=== PATIENT | female | born 1965 | race African-American/Black ===

== ENCOUNTER 2016-10-15 14:23 | Observation (INO) | payer MEDICARE, OTHER ==
--- NOTE | ~2016-10-15 | OP ---
Record Of Operation [facility] [address] [place]. [address] NAME: ESTRELLA QUINONEZ : 69 STATUS : DIS Nahid PAT#: [id number] AGE: 51 ADM/REG DATE : 10/15/16 MR#: [id number] REPORT SERV DATE: 10/18/16 DICTATED BY: SALVADOR BIGGS DATE: 10/18/16 REPORT STATUS : Draft TRANSCRIBED BY: MODL DATE: 10/18/16 DATE OF PROCEDURE: 10/16/2016 ATTENDING: Salvador Biggs MD. STUDENT SUCCESS COACH: Chadd. PREPROCEDURE DIAGNOSIS: Occluded AV graft. POSTPROCEDURE DIAGNOSES: 1. Occluded AV graft. 2. Stenosis with the venous outflow stent. ANESTHESIA: MAC and local. SPECIMENS: Clot. BLOOD LOSS: 50 mL. COMPLICATIONS: Perforation of the graft on the venous side. INDICATIONS: Estrella Quinonez is 51 years old, recently was found to have occluded AV graft. She was offered repair. Risks, benefits, and alternatives were discussed. She understood and wished to proceed. OPERATIVE COURSE: The patient was brought to the operating room and placed in supine position on the operating room table. The patient had MAC anesthetic that was converted to general. Right arm was prepped and draped in a sterile fashion. A time-out was performed. Identified the correct patient, procedure, site. We began by infiltrating the skin and subcutaneous tissue at the apex of the loop. We dissected down the subcutaneous tissue and fat to the graft which was encircled. We gave IV heparin and allowed adequate time for circulation. We made a transverse graftotomy, we immediately met with clot. We used a 4 Sunni to thrombectomize the arterial end and got brisk inflow after 3 passes. We clamped this end with a profunda clamp. We then passed the thrombectomy catheter distally in the venous circuit and we were able to pull out a large amount of clot. There was a lot of resistance from the venous anastomosis. We popped 1 balloon and had to try another one. We then tried to insert a sheath and met resistance. We then tried to insert the sheath over the wire and met further resistance. We performed a graftogram which demonstrated perforation of the graft. We were able to guide a Glidewire across the perforation into the distal graft. A graftogram here demonstrated severe stenosis within the outflow stent with patency of the central circulation. We got wire access across the occlusion and angioplastied the stent with a 6 cutting balloon and a 6 standard balloon. This gave a resolution of the stenosis. We then brought up a 7 x 150 Viabahn stent and covered the graft perforation. After this, the graftogram looked excellent with no residual stenosis. We checked the inflow again and it was brisk. We irrigated the graft. We then sutured the graft back together using interrupted 5-0 Prolene suture. Clamps were released and flow was Record Of Operation [address] [address] NAME: ESTRELLA QUINONEZ : 69 STATUS : DIS Nahid PAT#: [id number] AGE: 51 ADM/REG DATE : 10/15/16 MR#: [id number] REPORT SERV DATE: 10/18/16 DICTATED BY: SALVADOR BIGGS DATE: 10/18/16 REPORT STATUS : Draft TRANSCRIBED BY: WALT DATE: 10/18/16 re-established in the graft. There was an excellent thrill. The wound was irrigated with saline. We closed this incision with subdermal Vicryl and subcuticular Monocryl and Dermabond. The patient tolerated the procedure well. She was awakened and transferred to the recovery in stable condition. SHELLEY/WALT Salvador Biggs MD / [id number] CC: MD ESTRELLA Vega
[~2016-10-15 14:23] MED LIST: LORTAB 5 PO; PR25 PO; PRIN10 PO; PROVERA 10 MG T10 MG PO; T3 PO; ZIAC10 PO
[2016-10-15 15:02] LABS: BASOPHILS 0.1 %; BASOPHILS ABSOLUTE 0.02 10/3/uL (0.0-0.16); EOSINOPHILS 0.8 %; EOSINOPHILS ABSOLUTE 0.11 10/3/uL (0.0-0.53); IMMATURE GRANULOCYTES 0.2 %; IMMATURE GRANULOCYTES ABSOLUTE 0.03 10/3/uL (0.0-0.11); LYMPHOCYTES 19.9 %; LYMPHOCYTES ABSOLUTE 2.76 10/3/uL (0.67-4.30); MEAN PLATELET VOLUME 9.8 fL (9.2-13.0); MONOCYTES 4.9 %; MONOCYTES ABSOLUTE 0.68 10/3/uL (0.21-1.20); NEUTROPHILS 74.1 %; RBC DISTRIBUTION WIDTH 14.9 % (12.0-16.0); RED CELL COUNT 3.44 10/6/uL (4.0-5.6); WHITE BLOOD CELLS 13.9 10/3/uL (4.5-10.5)
[2016-10-15 15:05] LABS: HEMATOCRIT 34.3 % (36.0-48.0); HEMOGLOBIN 11.6 g/dL (12.0-16.0); MANUAL DIFF NO %; MEAN CORPUS HGB CONC 33.8 g/dL (32.0-36.0); MEAN CORPUSCULAR HEMOGLOB 33.7 pg (26.0-34.0); MEAN CORPUSCULAR VOLUME 99.7 fL (80-100); PLATELET COUNT 273 10/3/uL (150-400)
[2016-10-15] MEDS ORDERED: COREG3 PO (15:12)
[2016-10-15] MEDS ORDERED: SENSIPAR60 MG PO (15:14)
[2016-10-15] MEDS ORDERED: DIALYVITE PO (15:14)
[2016-10-15] MEDS ORDERED: ASAB PO (15:15)
[2016-10-15] MEDS ORDERED: SEVE800T PO (15:15)
[2016-10-15 16:15] LABS: CALCIUM, SERUM 8.4 MG/DL (8.5-10.4); CHLORIDE, SERUM 98 MMOL/L (96-112); CO2 (CARBON DIOXIDE) 21 MMOL/L (24-34); SODIUM, SERUM 137 MMOL/L (135-148)
[2016-10-15 16:17] LABS: BUN (BLOOD UREA NITROGEN) 80 MG/DL (6-23); POTASSIUM, SERUM 7.1 MMOL/L (3.5-5.3)
[2016-10-15 16:18] LABS: GFR AFRICAN AMERICAN 3 ML/MIN (>=60); GFR NON AFRICAN AMERICAN 3 ML/MIN (>=60); GLUCOSE, SERUM 74 MG/DL (60-99)
[2016-10-16 08:33] LABS: BASOPHILS 0.1 %; BASOPHILS ABSOLUTE 0.01 10/3/uL (0.0-0.16); IMMATURE GRANULOCYTES 0.3 %; IMMATURE GRANULOCYTES ABSOLUTE 0.03 10/3/uL (0.0-0.11); LYMPHOCYTES 19.7 %; LYMPHOCYTES ABSOLUTE 1.99 10/3/uL (0.67-4.30); MEAN CORPUS HGB CONC 33.7 g/dL (32.0-36.0); MEAN CORPUSCULAR HEMOGLOB 33.6 pg (26.0-34.0); MEAN CORPUSCULAR VOLUME 99.6 fL (80-100); MEAN PLATELET VOLUME 8.9 fL (9.2-13.0); MONOCYTES 6.5 %; MONOCYTES ABSOLUTE 0.66 10/3/uL (0.21-1.20); NEUTROPHILS 72.4 %; PLATELET COUNT 220 10/3/uL (150-400); RBC DISTRIBUTION WIDTH 14.8 % (12.0-16.0); WHITE BLOOD CELLS 10.1 10/3/uL (4.5-10.5)
[2016-10-16 08:37] LABS: HEMATOCRIT 26.7 % (36.0-48.0); MANUAL DIFF NO %; RED CELL COUNT 2.68 10/6/uL (4.0-5.6)
[2016-10-16 08:53] LABS: ALBUMIN 3.1 G/DL (3.5-5.0); CHLORIDE, SERUM 97 MMOL/L (96-112); CO2 (CARBON DIOXIDE) 20 MMOL/L (24-34); GFR AFRICAN AMERICAN 3 ML/MIN (>=60); GFR NON AFRICAN AMERICAN 3 ML/MIN (>=60); GLUCOSE, SERUM 88 MG/DL (60-99); PHOSPHORUS, SERUM 7.3 MG/DL (2.5-4.5)
[2016-10-16 08:54] LABS: BUN (BLOOD UREA NITROGEN) 85 MG/DL (6-23)
[2016-10-16 09:02] LABS: SODIUM, SERUM 135 MMOL/L (135-148)
== END 2016-10-16 16:20 | disposition home or self-care (01) ==
LOC: SDC 14:23 → 2SO 21:46
PROVIDERS: Internal Medicine Nephrology; Student in an Organized Health Care Education/Training Program
PROC: 03CY0ZZ Extirpation of Matter from Upper Artery, Open Approach (ICD-10-PCS; principal; 2016-10-15 15:15)
PROC: 037Y0ZZ Dilation of Upper Artery, Open Approach (ICD-10-PCS; 2016-10-15 15:15)
DX: T82.858A Stenosis of other vascular prosthetic devices, implants and grafts, initial encounter (principal); T82.898A Other specified complication of vascular prosthetic devices, implants and grafts, initial encounter; I12.0 Hypertensive chronic kidney disease with stage 5 chronic kidney disease or end stage renal disease; N18.6 End stage renal disease; Z79.82 Long term (current) use of aspirin; Z79.899 Other long term (current) drug therapy
CPT/HCPCS: 36831; 36901; 37238; 80048; 80069; 82962; 84132; 84703; 85025; 96374; A9270-GY; C1725; C1757; C1769; C1874; C1894; G0257; G0378; J0610; J0690; J2250; J2370; J2405; J3010; P9047; Q9967